=== PATIENT | male | born 1955 | race Caucasian/White ===

== ENCOUNTER → 2018-02-01 | Outpatient (CLI) | payer OTHER ==
[~2018-02-01] MED LIST: ASPI81TA82 PO; ATOR20TA42 PO; CLOP75 PO; DIGO0.25 PO; FURO1TAB93 PO; GLIP5 PO; JANU50TA9 PO; LISI-360 PO; MAGN400T PO; METF-324 PO; METO50 PO; NITR.4 SL; POTA-243 PO; SYNT75TA PO; TAB-TAB PO; TERB1%T TOP
== END ==
LOC: PHRSP 07:34
PROVIDERS: ATTEND Specialist
DX: R06.00 Dyspnea, unspecified (principal)
CPT/HCPCS: 94060; 94726; 94729